=== PATIENT | male | born 1965 | race Caucasian/White ===

== ENCOUNTER 2017-12-18 12:25 | Inpatient (IN) ==
[2017-12-18] MEDS ORDERED: 0.9 % Sodium Chloride 1,000 ML IVC ONE (13:15)
--- NOTE | 2017-12-18 13:18 | Emergency Department Note ---
Disposition Clinical Impression: Partial small bowel obstruction Disposition: Admitted As Inpatient Condition: Fair Referrals: NONE,PCP [Primary Care Provider] - Mart Ramirez [Family Provider] - Forms: ED Satisfaction Letter Time of Disposition: 16:39 Nausea/Vomiting/Diarrhea HPI - General Chief complaint: ED Nausea/Vomiting/Diarrhea Stated complaint: N/V/D Time Seen by Provider: 12/18/17 12:53 Source: patient Mode of arrival: ambulatory Limitations: no limitations Nursing Notes Reviewed: Yes Vital Signs Reviewed: Yes - History of Present Illness HPI Narrative: 52-year-old who developed nausea vomiting diarrhea after eating pizza couple nights ago he said persistent symptoms. Pt Subjective Complaint: nausea, vomiting, diarrhea Description of emesis: food contents Description of Diarrhea: water Associated Abdominal Pain: Yes If pain, Location of pain: diffuse Severity: moderate Quality: cramping, aching Consistency: intermittent Improves with: nothing Worsens with: nonthing Associated symptoms: Reports: nausea/vomiting - Related Data Home Medications Medication Instructions Recorded Confirmed Lisinopril [Zestril] 20 mg PO DAILY 12/18/17 12/18/17 Mag Carb/Al Hydrox/Alginic AC 30 ml PO ONCE PRN 12/18/17 12/18/17 [Gaviscon Liquid] Ranitidine HCl [Acid Apprentice Architect] 75 mg PO DAILY PRN 12/18/17 12/18/17 Allergies Allergy/AdvReac Type Severity Reaction Status Date / Time No Known Allergies Allergy Verified 12/18/17 16:57 All systems ED: reviewed and negative except as stated. Constitutional: Denies: fever, chills, weakness, weight change Eyes: Denies: eye pain, eye discharge, vision change ENT ED: Denies: ear pain, throat pain, dental pain, hearing loss, epistaxis, congestion, dysphagia Cardiovascular: Denies: chest pain, palpitations, dyspnea on exertion, edema, syncope Respiratory: Denies: cough, dyspnea, wheezes, hemoptysis, stridor Gastrointestinal: Reports: abdominal pain, nausea, vomiting, diarrhea. Denies: constipation, hematemesis, melena, hematochezia Genitourinary: Denies: urgency, dysuria, frequency, hematuria Musculoskeletal: Denies: back pain, neck pain, arthralgia, myalgia Integumentary: Denies: rash, abrasion, lesions Neurological: Denies: headache, weakness, numbness, paresthesias, confusion, abnormal gait, vertigo Psychiatric: Denies: anxiety, depression, suicidal thoughts, homicidal thoughts , auditory hallucinations, visual hallucinations Endocrine: Denies: fatigue Hematological/Lymphatic: Denies: easy bleeding, easy bruising Allergic/Immunologic: Denies: facial swelling, urticaria Past Medical History - Past Medical History Medical history: Reports: hyperlipidemia, hypertension Psychiatric history: Reports: no psych history - Social History Smoking Status: Never smoker Smokeless Tobacco Status: No Alcohol use: Reports: none Drug use: Reports: none Physical Exam - General Limitations: no limitations General appearance: alert - Head Head exam: atraumatic, normocephalic, normal inspection - Eye Eye exam: Present: normal appearance, PERRL, EOMI - ENT ENT exam: normal exam, normal oropharynx, mucous membranes moist - Neck Neck exam: Present: normal inspection, full ROM, trachea midline - Chest Chest inspection: Present: normal inspection, symmetric chest wall rise - Respiratory Respiratory exam: Present: normal lung sounds bilaterally - Cardiovascular Cardiovascular exam: Present: regular rate, normal rhythm, normal heart sounds - Abdominal Exam Abdominal exam: Present: soft, tenderness. Absent: guarding, rebound Abdominal tenderness: Present: diffuse - Extremities Exam Extremities exam: Present: normal inspection, full ROM. Absent: tenderness, pedal edema - Expanded Lower Extremity Exam Neurovascular/Tendon exam: Absent: motor deficit, sensory deficit, tendon deficit - Back Exam Back exam: Present: normal inspection, full ROM. Absent: tenderness - Neurological Exam Neurological exam: Present: alert, oriented X3 - Psychiatric Psychiatric exam: Present: normal affect, normal mood - Skin Skin exam: Present: warm, dry, intact, normal color Course - Consultations Consultation #1: Discussed with Dr. Lugo who will see the patient in consult admit to the hospitalist Time: 16:38 Consultation #2: Discussed with , admit Time: 16:48 Vital Signs Temperature 98.1 F 12/18/17 12:27 Pulse Rate 99 12/18/17 12:27 Respiratory Rate 18 12/18/17 12:27 Blood Pressure 148/94 12/18/17 12:27 O2 Sat by Pulse Oximetry 97 12/18/17 12:27 Temperature 98.1 F 12/18/17 12:27 Pulse Rate 78 06/21/18 17:14 Respiratory Rate 20 12/18/17 17:14 Blood Pressure 131/83 12/18/17 17:14 O2 Sat by Pulse Oximetry 98 12/18/17 17:14 Oxygen Delivery Oxygen Delivery Room Air Nausea/Vomiting/Diarrhea - Lab Data Result diagrams: 12/18/17 13:11 12/18/17 13:11 Lab Results 12/18/17 12/18/17 12/18/17 Range/Units 13:05 13:11 13:11 WBC 12.2 H (4.3-11.1) K/mcL RBC 5.89 H (4.19-5.50) M/mcL Hgb 16.0 (12.9-16.9) g/dL Hct 47.1 (37.5-50.1) % MCV 80.0 L (83.0-100.0) fL MCH 27.2 L (28.0-33.3) pg MCHC 34.0 (31.6-35.5) g/dL RDW 14.0 (11.5-14.5) % Plt Count 243 (140-400) K/mcL MPV 11.0 (9.4-12.4) fL Immature Gran % 0.3 (0-4) % Seg Neutrophils % 85.8 % Lymphocytes % 6.9 % Monocytes % 6.9 % Eosinophils % 0.0 % Basophils % 0.1 % Neutrophils # 10.4 H (1.6-8.9) K/mcL Lymphocytes # 0.8 (0.6-4.6) K/mcL Monocytes # 0.8 (0.0-1.3) K/mcL Eosinophils # 0.0 (0.0-0.6) K/mcL Basophils # 0.0 (0.0-0.2) K/mcL Sodium 132 L (136-145) mEq/L Potassium 3.8 (3.5-5.1) mEq/L Chloride 99 (98-107) mEq/L Carbon Dioxide 22 L (23-29) mEq/L BUN 12 (6-20) mg/dL Creatinine 1.02 (0.70-1.30) mg/dL Est GFR ( Amer) > 60 (> 60) Est GFR (Non-Af Amer) > 60 (> 60) BUN/Creatinine Ratio 12 (6-26) Glucose 134 H (70-105) mg/dL Calculated Osmolality 276 L (280-300) Calcium 9.4 (8.6-10.3) mg/dL Total Bilirubin 0.7 (0.3-1.0) mg/dL AST 24 (13-39) Units/L ALT 82 H (7-52) Units/L Alkaline Phosphatase 74 (34-104) Units/L Serum Total Protein 7.2 (6.4-8.9) g/dL Albumin 4.1 (3.5-5.7) g/dL Globulin 3.1 (2.4-3.5) g/dL Albumin/Globulin Ratio 1.3 (1.1-2.2) Lipase 6 L (11-82) Units/L Urine Color Dark Yellow (Yellow) Urine Clarity Clear (Clear) Urine pH 6.0 (5.0-8.0) pH Units Ur Specific [place] > 1.030 H (1.010-1.025) Urine Protein 30 H (Neg-Trace) mg/dL Urine Glucose (UA) Normal (Normal) mg/dL Urine Ketones 15 H (Negative) mg/dL Urine Blood Negative (Negative) Urine Nitrite Negative (Negative) Urine Bilirubin Negative (Negative) Urine Urobilinogen Normal (Normal) mg/dL Ur Leukocyte Esterase Negative (Negative) Urine Microscopic RBC 3-5 H (0-3) per hpf Urine Microscopic WBC 0-3 (0-3) per hpf Ur Squamous Epith Cells None Seen (None-Few) per lpf Urine Bacteria None Seen (None-Few) per hpf Hyaline Casts None Seen (None-Few) per lpf Ur Culture Indicated? NO (NO)
[2017-12-18 13:28] LABS: Bilirubin,Urine Negative (Negative); Blood,Urine Negative (Negative); Clarity,Urine Clear (Clear); Color,Urine Dark Yellow (Yellow); Glucose,Urine (UA) Normal (Normal); Ketones,Urine 15 mg/dL (Negative); Leukocyte Esterase,Urine Negative (Negative); Nitrite,Urine Negative (Negative); Protein,Urine 30 mg/dL (Neg-Trace); Specific Gravity,Urine > 1.030 (1.010-1.025); Urobilinogen,Urine Normal (Normal)
[2017-12-18 13:28] LABS: Basophils % 0.1 %; Hematocrit 47.1 % (37.5-50.1); Immature Granulocytes % 0.3 % (0-4); Lymphocytes # 0.8 K/mcL (0.6-4.6); Lymphocytes % 6.9 %; Mean Corpuscular Hemoglobin 27.2 pg (28.0-33.3); Monocytes # 0.8 K/mcL (0.0-1.3); Monocytes % 6.9 %; Neutrophils # 10.4 K/mcL (1.6-8.9); Platelet Count 243 K/mcL (140-400); Red Blood Count 5.89 M/mcL (4.19-5.50); Segmented Neutrophils % 85.8 %
[2017-12-18 13:30] LABS: Bacteria,Urine None Seen per hpf (None-Few); Hyaline Casts,Urine None Seen per lpf (None-Few); Squamous Epithelial Cell,Urine None Seen per lpf (None-Few); WBC,Urine 0-3 per hpf (0-3)
[2017-12-18 13:47] LABS: Alanine Aminotransferase 82 Units/L (7-52); Albumin 4.1 g/dL (3.5-5.7); Albumin/Globulin Ratio 1.3 (1.1-2.2); Alkaline Phosphatase 74 Units/L (34-104); Aspartate Amino Transferase 24 Units/L (13-39); BUN/Creatinine Ratio 12 (6-26); Bilirubin,Total 0.7 mg/dL (0.3-1.0); Blood Urea Nitrogen 12 mg/dL (6-20); Calcium 9.4 mg/dL (8.6-10.3); Carbon Dioxide 22 mEq/L (23-29); Chloride 99 mEq/L (98-107); Globulin 3.1 g/dL (2.4-3.5); Glucose 134 mg/dL (70-105); Lipase 6 Units/L (11-82); Osmolality,Calculated 276 (280-300); Potassium 3.8 mEq/L (3.5-5.1); Sodium 132 mEq/L (136-145); Total Protein 7.2 g/dL (6.4-8.9); eGFR For African Americans > 60 (> 60); eGFR For Non-African Americans > 60 (> 60)
[2017-12-18] MEDS ORDERED: Ondansetron 4 MG/2 ML VIAL IVP ONE (16:19)
[2017-12-18] MEDS ORDERED: *HR* HYDROmorphone (PF) 1 MG/ML SYRINGE IVP ONE (16:19)
[2017-12-18] MEDS ORDERED: Naloxone 0.4 MG/ML INJ IVP PRN ×2 (17:33→17:35)
[2017-12-18] MEDS ORDERED: 0.9 % Sodium Chloride 1,000 ML IVC SCH (17:45)
[2017-12-18] MEDS ORDERED: Pantoprazole 40 MG VIAL IVP SCH (17:45)
--- NOTE | 2017-12-18 17:54 | Internal Med History&Physical ---
Date of Encounter: 12/18/17 Time of Encounter: 06:00 Internal Medicine - H&P: HPI Chief complaint: Abdominal pain Admitted From: Home Plans for Post Hospital Care: Home History of present illness: Mr. العلي is a 52 year old male who presented to the emergency department with abdominal pain. Pain started this morning and got worse. Patient had CT abdomen that showed high-grade partial small bowel obstruction. Surgery contacted and they will see the patient on consult. Patient denied any chest pain no shortness of breath no headache no blurry vision. He did have nausea and vomiting and abdominal pain. Last bowel movement was yesterday morning. Past Med Surg Social Fam HX - Past Medical History Medical history: hyperlipidemia, hypertension Psychiatric history: no psych history - Past Surgical History Additional surgical history: right fourth digit - Social History Smoking Status: Never smoker Smokeless Tobacco Status: No Alcohol use: none Drug use: none - Additional Family History Additional family history: Family history reviewed with the patient and not related to his current problem. Positive for hypertension Internal Medicine - H&P: Meds Lisinopril [Zestril] 20 mg PO DAILY 12/18/17 [History] Mag Carb/Al Hydrox/Alginic AC [Gaviscon Liquid] 30 ml PO ONCE PRN 12/18/17 [ History] Ranitidine HCl [Acid Long Distance Operator] 75 mg PO DAILY PRN 12/18/17 [History] 3 Allergy/AdvReac Type Severity Reaction Status Date / Time No Known Allergies Allergy Verified 12/18/17 16:57 All Systems PM: A 10-system review of systems was performed and is negative for pertinent findings except as documented above in the HPI. Review of systems: Comprehensive 10 point review of system was done and it was negative other than what was mentioned above - Constitutional Vitals: Temp Pulse Resp BP Pulse Ox 98.1 F 78 20 131/83 98 12/18/17 12:27 12/18/17 17:14 12/18/17 17:14 12/18/17 17:14 12/18/17 17:14 General appearance: Present: A&O X 3 - Head Head exam: Present: atraumatic, normocephalic - Eye Eye exam: Present: PERRL, conjuntiva pink, sclera anicteric Pupils: Present: PERRL - Neck Neck exam general surgery: Present: supple, trachea midline. Absent: lymphadenopathy - Respiratory Respiratory exam: Present: CTAB. Absent: accessory muscle use, rales, rhonchi, wheezes - Cardiovascular Cardiovascular exam: Present: RRR, +S1, +S2. Absent: diastolic murmur, gallop, rubs, systolic murmur - GI/Abdominal Additional comments: Tenderness mostly in the upper abdomen and left abdomen - Extremities Exam Extremities exam: Present: warm, radial pulses palpable and symmetrical. Absent : calf tenderness, cyanotic, pedal edema - Neurological Exam Neurological exam: Present: CN II-XII intact, oriented X3, no focal deficits. Absent: pronater drift, facial droop, speech deficit Internal Med - H&P Results - Labs CBC & Chem 7: 12/18/17 13:11 12/18/17 13:11 Labs: Short CBC 12/18/17 Range/Units 13:11 WBC 12.2 H (4.3-11.1) K/mcL Hgb 16.0 (12.9-16.9) g/dL Hct 47.1 (37.5-50.1) % Plt Count 243 (140-400) K/mcL Neutrophils # 10.4 H (1.6-8.9) K/mcL BMP 12/18/17 13:11 Sodium 132 L Potassium 3.8 Chloride 99 Carbon Dioxide 22 L BUN 12 Creatinine 1.02 Glucose 134 H Calcium 9.4 Liver Function 12/18/17 Range/Units 13:11 Total Bilirubin 0.7 (0.3-1.0) mg/dL AST 24 (13-39) Units/L ALT 82 H (7-52) Units/L Alkaline Phosphatase 74 (34-104) Units/L Albumin 4.1 (3.5-5.7) g/dL Urine 12/18/17 Range/Units 13:05 Urine Color Dark Yellow (Yellow) Urine Clarity Clear (Clear) Urine pH 6.0 (5.0-8.0) pH Units Ur Specific [place] > 1.030 H (1.010-1.025) Urine Protein 30 H (Neg-Trace) mg/dL Urine Glucose (UA) Normal (Normal) mg/dL - Impressions ITS Impressions Abdomen/Pelvis CT 12/18/17 13:16 IMPRESSION: 1. Findings concerning for high-grade partial small-bowel obstruction with transition point in the mid small bowel in the periumbilical region. This could be related to adhesions. 2. Haziness of the mesentery with multiple prominent mesenteric lymph nodes are likely reactive in nature from the small bowel process. 3. Minor free fluid in the pelvis is likely reactive in nature from the small bowel process. 4. Severely atrophic left kidney with markedly dilated left ureter extending down to the left UVJ. 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 D/ / Nawaf Downey MD / Nawaf Downey MD Interpreting Provider: Nawaf Downey MD - Assessment and plan (1) Partial small bowel obstruction Current Visit: Yes Status: Acute Assessment and plan: Keep patient nothing by mouth for now NG tube to be inserted, for decompression IV hydration with normal saline IV Protonix Pain management Surgeries consulted Monitor labs and replace electrolytes as needed (2) Partial small bowel obstruction Current Visit: Yes Status: Acute Assessment and plan: Add hydralazine IV when necessary for now May restart his home antihypertensives when patient is taking by mouth (3) History of hypertension Current Visit: Yes Status: Acute (4) On esomeprazole prophylaxis Current Visit: Yes Status: Acute (5) DVT prophylaxis Current Visit: Yes Status: Acute - Time Spent With Patient Total time spent is greater than 50% in coordination of care (as documented) at patient's floor/unit and/or counseling patient:
[2017-12-18] MEDS ORDERED: Ondansetron 4 MG/2 ML VIAL IVP PRN (18:02)
[2017-12-18] MEDS: 0.9 % Sodium Chloride 1,000 ML IVC SCH (20:12)
[2017-12-18] MEDS: Pantoprazole 40 MG VIAL IVP SCH (20:15)
[2017-12-18] MEDS: Chloraseptic Spray 177 ML BOTTLE MM PRN (20:22)
[2017-12-18] MEDS ORDERED: *HR* FentaNYL (PF) 100 MCG/2 ML VIAL IVP SCH (23:45)
[2017-12-19] MEDS: *HR* FentaNYL (PF) 100 MCG/2 ML VIAL IVP PRN ×2 (03:26→10:16)
[2017-12-19] MEDS: 0.9 % Sodium Chloride 1,000 ML IVC SCH ×3 (03:29→20:17)
[2017-12-19 05:57] LABS: Basophils % 0.3 %; Eosinophils # 0.1 K/mcL (0.0-0.6); Eosinophils % 1.1 %; Hematocrit 38.5 % (37.5-50.1); Immature Granulocytes % 0.2 % (0-4); Lymphocytes # 1.2 K/mcL (0.6-4.6); Lymphocytes % 19.2 %; Mean Corpuscular HGB Conc 32.2 g/dL (31.6-35.5); Mean Corpuscular Hemoglobin 26.7 pg (28.0-33.3); Monocytes # 0.6 K/mcL (0.0-1.3); Monocytes % 9.7 %; Neutrophils # 4.5 K/mcL (1.6-8.9); Platelet Count 167 K/mcL (140-400); Red Blood Count 4.64 M/mcL (4.19-5.50); Red Cell Distribution Width 14.5 % (11.5-14.5); Segmented Neutrophils % 69.5 %
[2017-12-19] MEDS: *HR* Enoxaparin 40 MG/0.4 ML SYRINGE SQ SCH (06:00)
[2017-12-19 06:15] LABS: Hemoglobin 12.4 g/dL (12.9-16.9)
[2017-12-19 06:23] LABS: BUN/Creatinine Ratio 11 (6-26); Blood Urea Nitrogen 12 mg/dL (6-20); Carbon Dioxide 25 mEq/L (23-29); Chloride 104 mEq/L (98-107); Glucose 99 mg/dL (70-105); Magnesium 1.8 mg/dL (1.6-2.6); Osmolality,Calculated 282 (280-300); Sodium 136 mEq/L (136-145); eGFR For African Americans > 60 (> 60); eGFR For Non-African Americans > 60 (> 60)
--- NOTE | 2017-12-19 06:58 | General Surgery Consult Note ---
Date of Encounter: 12/19/17 Time of Encounter: 06:56 Assessment and Plan (1) Partial small bowel obstruction Current Visit: Yes Status: Acute I splayed to the patient that overall he seems to be improving. His NG tube output was approximately 400 mL when the NG tube was first placed. He has positive bowel sounds on my examination and states that he does feel he has to pass flatus. I recommended that he ambulate and I would continue with the NG tube for decompression purposes. Will continue with IV fluids and allowed allow ice chips. At this time he does not require any type of surgical intervention. We will continue these conservative measures for now. History of Present Illness Consult date: 12/19/17 Reason for consult: other (Nausea/vomiting, abdominal distension) Requesting physician: Oscar Austin History of present illness: The patient is a 52-year-old male with a past medical history significant for hypertension and hyperlipidemia who states that 4 days ago Friday he started to have some nausea and vomiting with diarrhea that quickly subsided. He started to feel better the next day and then had dinner as usual. Friday morning at breakfast and then in the afternoon he started to have nausea and vomiting with some abdominal distention. The nausea and vomiting continued from Friday night to . He states he started having diarrhea again on evening which was brown and pasty but that on Friday diarrhea turned to more liquid and dark in color. He admits to some abdominal pain but more abdominal distention is the cause of his discomfort. Because of his continuing symptoms yesterday he presented himself to [facility] for further evaluation. Currently states that he feels better. An NG tube was placed upon his admission to the hospital. He does not have any current abdominal pain (he has some soreness because of the vomiting) and states that he feels like he has to pass flatus. Past Med Surg Social Fam HX - Past Medical History Medical history: hyperlipidemia, hypertension Psychiatric history: no psych history - Past Surgical History Surgical History: appendectomy (Open appy), other (Right forth finger, right knee surgery) Additional surgical history: right fourth digit, right, appy - Social History Smoking Status: Never smoker Smokeless Tobacco Status: No Alcohol use: none Drug use: none Medications and Allergies Lisinopril [Zestril] 20 mg PO DAILY 12/18/17 [History] Mag Carb/Al Hydrox/Alginic AC [Gaviscon Liquid] 30 ml PO ONCE PRN 12/18/17 [ History] Ranitidine HCl [Acid Netbackup Engineer] 75 mg PO DAILY PRN 12/18/17 [History] 3 Allergy/AdvReac Type Severity Reaction Status Date / Time No Known Allergies Allergy Verified 12/18/17 16:57 Review of Systems All systems PM: reviewed and no additional remarkable complaints except as stated All systems PM: The remainder of the systems were reviewed and are negative General Surgery Exam Initial Vital Signs Temp Pulse Resp BP Pulse Ox 98.1 F 99 18 148/94 97 12/18/17 12:27 12/18/17 12:27 12/18/17 12:27 12/18/17 12:27 12/18/17 12:27 - Eyes PERRL, normal ocular movement - Respiratory normal expansion, normal respiratory effort, clear to auscultation - Cardiovascular Cardiovascular exam: Present: RRR, no murmurs/rubs/gallops - Abdomen Abdomen general surgery: Present: bowel sounds present, soft, tender (Mild tenderness to palpation. No masses) - Neurologic Present: CN 2-12 grossly intact - Musculoskeletal Present: other (No clubbing or cyanosis or edema) Exam Initial Vital Signs Temp Pulse Resp BP Pulse Ox 98.1 F 99 18 148/94 97 12/18/17 12:27 12/18/17 12:27 12/18/17 12:27 12/18/17 12:27 12/18/17 12:27 Results - Labs 12/19/17 05:18 12/19/17 05:18 Abnormal lab results Hgb 12.4 g/dL (12.9-16.9) L D 12/19/17 05:18 MCH 26.7 pg (28.0-33.3) L 12/19/17 05:18 Calcium 8.0 mg/dL (8.6-10.3) L 12/19/17 05:18 ALT 82 Units/L (7-52) H 12/18/17 13:11 Lipase 6 Units/L (11-82) L 12/18/17 13:11 Ur Specific [place] > 1.030 (1.010-1.025) H 12/18/17 13:05 Urine Protein 30 mg/dL (Neg-Trace) H 12/18/17 13:05 Urine Ketones 15 mg/dL (Negative) H 12/18/17 13:05 Urine Microscopic RBC 3-5 per hpf (0-3) H 12/18/17 13:05 Diabetes panel 12/19/17 Range/Units 05:18 Sodium 136 (136-145) mEq/L Potassium 4.0 (3.5-5.1) mEq/L Chloride 104 (98-107) mEq/L Carbon Dioxide 25 (23-29) mEq/L BUN 12 (6-20) mg/dL Creatinine 1.12 (0.70-1.30) mg/dL Glucose 99 (70-105) mg/dL Calcium 8.0 L (8.6-10.3) mg/dL Calcium panel 12/19/17 Range/Units 05:18 Calcium 8.0 L (8.6-10.3) mg/dL Phosphorus 3.0 (2.7-4.5) mg/dL Pituitary panel 12/19/17 Range/Units 05:18 Sodium 136 (136-145) mEq/L Potassium 4.0 (3.5-5.1) mEq/L Chloride 104 (98-107) mEq/L Carbon Dioxide 25 (23-29) mEq/L BUN 12 (6-20) mg/dL Creatinine 1.12 (0.70-1.30) mg/dL Glucose 99 (70-105) mg/dL Calcium 8.0 L (8.6-10.3) mg/dL Adrenal panel 12/19/17 Range/Units 05:18 Sodium 136 (136-145) mEq/L Potassium 4.0 (3.5-5.1) mEq/L Chloride 104 (98-107) mEq/L Carbon Dioxide 25 (23-29) mEq/L BUN 12 (6-20) mg/dL Creatinine 1.12 (0.70-1.30) mg/dL Glucose 99 (70-105) mg/dL Calcium 8.0 L (8.6-10.3) mg/dL All other labs normal. - Imaging CT scan - abdomen: report reviewed, image reviewed (I personally reviewed the CT scan images and report. Shows evidence of small bowel dilation concerning for partial small obstruction near high-grade. No intra-abdominal masses noted. ) Consult Discharge Plan - Plan Referrals: NONE,PCP [Primary Care Provider] - Mart Ramirez [Family Provider] -
[2017-12-19] MEDS: Pantoprazole 40 MG VIAL IVP SCH (10:16)
--- NOTE | 2017-12-19 12:39 | Internal Med Progress Note ---
Date of Encounter: 12/19/17 Time of Encounter: 12:37 - Assessment and plan (1) Partial small bowel obstruction Current Visit: Yes Status: Acute Assessment and plan: continue NG decompression, surgery is on board (2) Leukocytosis Current Visit: Yes Status: Acute Assessment and plan: resolved Qualifiers: Leukocytosis type: unspecified Qualified Code(s): D72.829 - Elevated white blood cell count, unspecified (3) Dehydration Current Visit: Yes Status: Acute Assessment and plan: contineu IVF (4) Chronic GERD Current Visit: Yes Status: Acute Assessment and plan: On PPI iV (5) Hypertension Current Visit: Yes Status: Acute Assessment and plan: hold lisinopril due to NPO, BP is well controlled Qualifiers: Hypertension type: essential hypertension Qualified Code(s): I10 - Essential (primary) hypertension - Time Spent With Patient Total time spent is greater than 50% in coordination of care (as documented) at patient's floor/unit and/or counseling patient: 25 - 35 minutes - Subjective Interval history: Mr. العلي is a 52 year old male who has remote hx of appendiectomy presented to the emergency department with abdominal pain. Pain started this morning and got worse. Patient had CT abdomen that showed high-grade partial small bowel obstruction. Surgery contacted and they will see the patient on consult. Patient denied any chest pain no shortness of breath no headache no blurry vision. He did have nausea and vomiting and abdominal pain. Patient is doing well, abdominal paina nd distention improved, tolerated NG. abdomen is soft and nontender. - Constitutional Vitals: Temp Pulse Resp BP Pulse Ox 98.1 F 64 16 139/75 96 12/19/17 10:44 12/19/17 10:44 12/19/17 10:44 12/19/17 10:44 12/19/17 10:44 General appearance: Present: A&O X 3, pleasant, obese Exam: CONSTITUTIONAL: patient appears as an age appropriate male in no acute distress. EYES Clear sclerae, bilateral pupils are equal, reactive to light. EMOI. RESPIRATORY: No accessory muscle use, bilateral clear to auscultation, no wheezing, no crackles/rales. CARDIOVASCULAR: Regular heart rate, normal S1 and S2, no murmurs GASTROINTESTINAL: bowel sounds present, soft, no tenderness. MUSCULOSKELETAL: Joints in normal range of motion, no clubbing, no edema, no cyanosis. Bilateral peripheral pulses 2+. NEUROLOGIC: CN II to XII are grossly intact, no focal neurological deficit. Internal Medicine: Result - Labs CBC & Chem 7: 12/19/17 05:18 12/19/17 05:18 Labs: Short CBC 12/19/17 Range/Units 05:18 WBC 6.4 (4.3-11.1) K/mcL Hgb 12.4 L D (12.9-16.9) g/dL Hct 38.5 (37.5-50.1) % Plt Count 167 (140-400) K/mcL Neutrophils # 4.5 (1.6-8.9) K/mcL BMP 12/19/17 05:18 Sodium 136 Potassium 4.0 Chloride 104 Carbon Dioxide 25 BUN 12 Creatinine 1.12 Glucose 99 Calcium 8.0 L - Impressions Impressions Abdomen X-Ray 12/19/17 06:37 IMPRESSION: NG tube coiled in the gastric fundus. Persistent mid small bowel obstruction. D/ / 12/19/2017 10:35:35 Froylan Mccoy MD / edu Interpreting Provider: Froylan Mccoy MD Consult Discharge Plan - Plan Referrals: NONE,PCP [Primary Care Provider] - Mart Ramirez [Family Provider] -
[2017-12-19] MEDS: Chloraseptic Spray 177 ML BOTTLE MM PRN (20:19)
[2017-12-20] MEDS ORDERED: Dextrose Gel 15 GM/37.5 ML TUBE PO PRN ×2 (01:50)
[2017-12-20] MEDS ORDERED: *HR* Dextrose 50 % in Water (Syg) 50 ML SYRINGE IVP PRN (01:50)
[2017-12-20] MEDS ORDERED: D5% in Water 1,000 ML IVC PRN (01:50)
[2017-12-20] MEDS: 0.9 % Sodium Chloride 1,000 ML IVC SCH ×3 (03:45→20:06)
[2017-12-20] MEDS: Insulin LISPRO 300 UNITS/3 ML VIAL SQ SCH ×3 (06:06→19:47)
[2017-12-20] MEDS: *HR* Enoxaparin 40 MG/0.4 ML SYRINGE SQ SCH (06:08)
[2017-12-20] MEDS: Pantoprazole 40 MG VIAL IVP SCH (09:35)
--- NOTE | 2017-12-20 10:58 | General Surgery Progress Note ---
<Reggie Arita R - Last Filed: 12/20/17 10:54> Date of Encounter: 12/20/17 Time of Encounter: 08:30 - Assessment and Plan (1) Partial small bowel obstruction Current Visit: Yes Status: Acute NG output had been decreasing. Large BM this morning. Abd is soft, mild tenderness.Positive bowel sounds PLAN: Remove NG tube Limited clear liquid diet - 300 ml Q8H Symptom control Ambulate hallways TID No surgical indications at this time Subjective Patient reports: no new complaints, feels better, still having pain, pain is less, voiding w/o difficulty, bowel movement, afebrile Narrative: Large BM this AM. No N/V. Pain is improving. Reports significant improvement in his abdominal distention. Objective Vital Signs - Last 8 Hours Temp Pulse Resp BP Pulse Ox 12/20/17 07:38 98.1 F 73 16 136/74 97 12/20/17 04:39 98.6 F 61 16 134/71 97 Intake and Output 12/19/17 12/20/17 12/20/17 23:59 07:59 15:59 Intake Total 1070 / 1070 1000 / 1000 Output Total 1050 / 1050 1400 / 1400 Balance 20 / 20 -400 / -400 Intake: IV Fluids 1000 / 1000 1000 / 1000 0.9 % Sodium Chloride 1,000 ML 1000 / 1000 1000 / 1000 @ 125 mls/hr IVC .Q8H COUNTS INCLUDE 234 BEDS AT [facility] Rx#: [id number] Oral 70 / 70 0 / 0 Output: Urine 0 / 0 550 / 550 Gastric Tube Lavage Amount 400 / 400 400 / 400 Left Nare 400 / 400 400 / 400 Gastric Drainage 650 / 650 450 / 450 Other: Meal npo Percent of Meal Consumed 0% Stool Size Large Stool Consistency loose liquid Stool Color Brown Weight 92 kg Blood Glucose* 70 86 Patient Weight 12/20/17 23:59 Weight 92 kg - General physical appearance well developed, well nourished, no distress - Respiratory normal expansion, normal respiratory effort, clear to auscultation - Cardiovascular Cardiovascular exam: Present: RRR - Abdomen Abdomen: Present: bowel sounds present, soft, tender (mild). Absent: distended , guarding, rebound, rigid - Integumentary no rash, no growths, no abnormal pigmentation - Neurologic CN 2-12 grossly intact, normal coordination - Psychiatric oriented to time, oriented to person, oriented to place, speech is normal, memory intact - Labs 12/19/17 05:18 12/19/17 05:18 Consult Discharge Plan - Plan Referrals: NONE,PCP [Primary Care Provider] - Mart Ramirez [Family Provider] - <Farrukh Beck - Last Filed: 12/20/17 12:21> Date of Encounter: 12/20/17 Objective Vital Signs - Last 8 Hours Temp Pulse Resp BP Pulse Ox 12/20/17 10:52 98.2 F 69 16 147/69 97 12/20/17 07:38 98.1 F 73 16 136/74 97 12/20/17 04:39 98.6 F 61 16 134/71 97 Intake and Output 12/19/17 12/20/17 12/20/17 23:59 07:59 15:59 Intake Total 1070 / 1070 1000 / 1000 0 / 0 Output Total 1050 / 1050 1400 / 1400 Balance 20 / 20 -400 / -400 0 / 0 Intake: IV Fluids 1000 / 1000 1000 / 1000 0.9 % Sodium Chloride 1,000 ML 1000 / 1000 1000 / 1000 @ 125 mls/hr IVC .Q8H [facility] Rx#: [id number] Oral 70 / 70 0 / 0 0 / 0 Output: Urine 0 / 0 550 / 550 Gastric Tube Lavage Amount 400 / 400 400 / 400 Left Nare 400 / 400 400 / 400 Gastric Drainage 650 / 650 450 / 450 Other: Meal npo Percent of Meal Consumed 0% Stool Size Large Stool Consistency loose liquid Stool Color Brown # Voids 0 Weight 92 kg Blood Glucose* 70 86 79 Patient Weight 12/20/17 23:59 Weight 92 kg - Labs 12/19/17 05:18 12/19/17 05:18 - Attending Attestation I examined this patient and my medical decision-making was reviewed with the Resident Physician. I agree with the documented findings, disposition and treatment plan as described except to the extent set forth below. The patient is admitted for partial bowel obstruction. He had a large bowel movement this morning. His abdomen is soft and nontender. He has normal bowel sounds. I would recommend removing the nasogastric tube in place him on clear liquids. Advance diet as tolerated. Farrukh Beck MD FACS
--- NOTE | 2017-12-20 11:47 | Internal Med Progress Note ---
Date of Encounter: 12/20/17 Time of Encounter: 11:43 - Assessment and plan (1) Partial small bowel obstruction Current Visit: Yes Status: Acute Assessment and plan: Had BM, appreciate surgery help, NG removed, on clears (2) Leukocytosis Current Visit: Yes Status: Acute Assessment and plan: resolved Qualifiers: Leukocytosis type: unspecified Qualified Code(s): D72.829 - Elevated white blood cell count, unspecified (3) Dehydration Current Visit: Yes Status: Acute Assessment and plan: continue IVF (4) Chronic GERD Current Visit: Yes Status: Acute Assessment and plan: on PPI (5) Hypertension Current Visit: Yes Status: Acute Qualifiers: Hypertension type: essential hypertension Qualified Code(s): I10 - Essential (primary) hypertension - Time Spent With Patient Total time spent is greater than 50% in coordination of care (as documented) at patient's floor/unit and/or counseling patient: 25 - 35 minutes - Subjective Interval history: Mr. العلي is a 52 year old male who has remote hx of appendiectomy presented to the emergency department with abdominal pain. Pain started this morning and got worse. Patient had CT abdomen that showed high-grade partial small bowel obstruction. Surgery contacted and they will see the patient on consult. Patient denied any chest pain no shortness of breath no headache no blurry vision. He did have nausea and vomiting and abdominal pain. Patient was admitted for SBO on 12/18. Surgery was consulted and they recommended conservative management. Patient was placed on NG for decompression. He had large BM, NG was removed this morning, his abdomen is soft , and started on clear now. - Constitutional Vitals: Temp Pulse Resp BP Pulse Ox 98.2 F 69 16 147/69 97 12/20/17 10:52 12/20/17 10:52 12/20/17 10:52 12/20/17 10:52 12/20/17 10:52 General appearance: Present: A&O X 3, pleasant, obese Exam: CONSTITUTIONAL: patient appears as an age appropriate male in no acute distress. EYES Clear sclerae, bilateral pupils are equal, reactive to light. EMOI. RESPIRATORY: No accessory muscle use, bilateral clear to auscultation, no wheezing, no crackles/rales. CARDIOVASCULAR: Regular heart rate, normal S1 and S2, no murmurs GASTROINTESTINAL: bowel sounds present, soft, no tenderness. MUSCULOSKELETAL: Joints in normal range of motion, no clubbing, no edema, no cyanosis. Bilateral peripheral pulses 2+. NEUROLOGIC: CN II to XII are grossly intact, no focal neurological deficit. Internal Medicine: Result - Labs CBC & Chem 7: 12/19/17 05:18 12/19/17 05:18 Consult Discharge Plan - Plan Referrals: NONE,PCP [Primary Care Provider] - Mart Ramirez [Family Provider] -
[2017-12-21 01:49] LABS: Basophils % 0.3 %; Eosinophils % 0.6 %; Hematocrit 37.6 % (37.5-50.1); Hemoglobin 12.7 g/dL (12.9-16.9); Immature Granulocytes % 0.4 % (0-4); Lymphocytes # 0.9 K/mcL (0.6-4.6); Lymphocytes % 12.5 %; Mean Corpuscular HGB Conc 33.8 g/dL (31.6-35.5); Mean Corpuscular Hemoglobin 27.5 pg (28.0-33.3); Mean Corpuscular Volume 81.6 fL (83.0-100.0); Monocytes # 0.5 K/mcL (0.0-1.3); Monocytes % 7.4 %; Neutrophils # 5.4 K/mcL (1.6-8.9); Platelet Count 176 K/mcL (140-400); Red Blood Count 4.61 M/mcL (4.19-5.50); Red Cell Distribution Width 13.7 % (11.5-14.5); Segmented Neutrophils % 78.8 %
[2017-12-21 02:11] LABS: BUN/Creatinine Ratio 11 (6-26); Blood Urea Nitrogen 10 mg/dL (6-20); Calcium 8.3 mg/dL (8.6-10.3); Carbon Dioxide 21 mEq/L (23-29); Chloride 111 mEq/L (98-107); Glucose 101 mg/dL (70-105); Magnesium 1.9 mg/dL (1.6-2.6); Osmolality,Calculated 281 (280-300); Potassium 3.7 mEq/L (3.5-5.1); Sodium 136 mEq/L (136-145); eGFR For African Americans > 60 (> 60); eGFR For Non-African Americans > 60 (> 60)
[2017-12-21] MEDS: 0.9 % Sodium Chloride 1,000 ML IVC SCH ×2 (03:22→16:02)
[2017-12-21] MEDS: *HR* Enoxaparin 40 MG/0.4 ML SYRINGE SQ SCH (06:05)
[2017-12-21] MEDS: Pantoprazole 40 MG VIAL IVP SCH (08:20)
[2017-12-21] MEDS: Simethicone 80 MG TAB.CHEW PO SCH ×3 (08:20→20:47)
--- NOTE | 2017-12-21 09:24 | General Surgery Progress Note ---
<Reggie Arita R - Last Filed: 12/21/17 10:22> Date of Encounter: 12/21/17 Time of Encounter: 07:10 - Assessment and Plan (1) Partial small bowel obstruction Current Visit: Yes Status: Acute Reporting feeling bloated today but no appreciable distention. No flatus Abd is soft, mild tenderness. Positive bowel sounds PLAN: Limited clear liquid diet - 300 ml Q8H Add colace and simethicone Fleet enema x1 Symptom control Ambulate hallways TID No surgical indications at this time Subjective Narrative: He reports feeling a little more bloated overnight. No flatus or BM. Feels like he has to go, but not able to. Tolerated limited clears without N/V. No fevers. Objective Vital Signs - Last 8 Hours Temp Pulse Resp BP Pulse Ox 12/21/17 07:33 98.5 F 69 16 160/81 97 12/21/17 04:19 98.7 F 74 16 160/86 96 Intake and Output 12/20/17 12/21/17 12/21/17 23:59 07:59 15:59 Intake Total 720 / 720 1420 / 1420 Output Total 1575 / 1575 700 / 700 Balance -855 / -855 720 / 720 Intake: IV Fluids 1000 / 1000 0.9 % Sodium Chloride 1,000 ML 1000 / 1000 @ 125 mls/hr IVC .Q8H [facility] Rx#: [id number] Oral 720 / 720 420 / 420 Output: Urine 1575 / 1575 700 / 700 Other: # Bowel Movements 1 0 Weight 92.6 kg Patient Weight 12/21/17 23:59 Weight 92.6 kg - General physical appearance well developed, well nourished, no distress - Respiratory normal expansion, normal respiratory effort, clear to auscultation - Cardiovascular Cardiovascular exam: Present: RRR - Abdomen Abdomen: Present: bowel sounds present, soft, tender (mild). Absent: distended , guarding, rebound, rigid - Integumentary no rash - Neurologic CN 2-12 grossly intact, normal coordination - Psychiatric oriented to time, oriented to person, oriented to place, speech is normal, memory intact - Labs 12/21/17 01:19 12/21/17 01:19 Diabetes panel 12/21/17 Range/Units 01:19 Sodium 136 (136-145) mEq/L Potassium 3.7 (3.5-5.1) mEq/L Chloride 111 H (98-107) mEq/L Carbon Dioxide 21 L (23-29) mEq/L BUN 10 (6-20) mg/dL Creatinine 0.89 (0.70-1.30) mg/dL Glucose 101 (70-105) mg/dL Calcium 8.3 L (8.6-10.3) mg/dL Calcium panel 12/21/17 Range/Units 01:19 Calcium 8.3 L (8.6-10.3) mg/dL Pituitary panel 12/21/17 Range/Units 01:19 Sodium 136 (136-145) mEq/L Potassium 3.7 (3.5-5.1) mEq/L Chloride 111 H (98-107) mEq/L Carbon Dioxide 21 L (23-29) mEq/L BUN 10 (6-20) mg/dL Creatinine 0.89 (0.70-1.30) mg/dL Glucose 101 (70-105) mg/dL Calcium 8.3 L (8.6-10.3) mg/dL Adrenal panel 12/21/17 Range/Units 01:19 Sodium 136 (136-145) mEq/L Potassium 3.7 (3.5-5.1) mEq/L Chloride 111 H (98-107) mEq/L Carbon Dioxide 21 L (23-29) mEq/L BUN 10 (6-20) mg/dL Creatinine 0.89 (0.70-1.30) mg/dL Glucose 101 (70-105) mg/dL Calcium 8.3 L (8.6-10.3) mg/dL Consult Discharge Plan - Plan Referrals: NONE,PCP [Primary Care Provider] - Mart Ramirez [Family Provider] - <Farrukh Beck - Last Filed: 12/21/17 11:11> Date of Encounter: 12/21/17 Objective Vital Signs - Last 8 Hours Temp Pulse Resp BP Pulse Ox 12/21/17 07:33 98.5 F 69 16 160/81 97 12/21/17 04:19 98.7 F 74 16 160/86 96 Intake and Output 12/20/17 12/21/17 12/21/17 23:59 07:59 15:59 Intake Total 720 / 720 1420 / 1420 600 / 600 Output Total 1575 / 1575 700 / 700 Balance -855 / -855 720 / 720 600 / 600 Intake: IV Fluids 1000 / 1000 0.9 % Sodium Chloride 1,000 ML 1000 / 1000 @ 125 mls/hr IVC .Q8H [facility] Rx#: [id number] Oral 720 / 720 420 / 420 600 / 600 Output: Urine 1575 / 1575 700 / 700 Other: Meal clear liquids # Bowel Movements 1 0 Weight 92.6 kg Patient Weight 12/21/17 23:59 Weight 92.6 kg - Labs 12/21/17 01:19 12/21/17 01:19 Diabetes panel 12/21/17 Range/Units 01:19 Sodium 136 (136-145) mEq/L Potassium 3.7 (3.5-5.1) mEq/L Chloride 111 H (98-107) mEq/L Carbon Dioxide 21 L (23-29) mEq/L BUN 10 (6-20) mg/dL Creatinine 0.89 (0.70-1.30) mg/dL Glucose 101 (70-105) mg/dL Calcium 8.3 L (8.6-10.3) mg/dL Calcium panel 12/21/17 Range/Units 01:19 Calcium 8.3 L (8.6-10.3) mg/dL Pituitary panel 12/21/17 Range/Units 01:19 Sodium 136 (136-145) mEq/L Potassium 3.7 (3.5-5.1) mEq/L Chloride 111 H (98-107) mEq/L Carbon Dioxide 21 L (23-29) mEq/L BUN 10 (6-20) mg/dL Creatinine 0.89 (0.70-1.30) mg/dL Glucose 101 (70-105) mg/dL Calcium 8.3 L (8.6-10.3) mg/dL Adrenal panel 12/21/17 Range/Units 01:19 Sodium 136 (136-145) mEq/L Potassium 3.7 (3.5-5.1) mEq/L Chloride 111 H (98-107) mEq/L Carbon Dioxide 21 L (23-29) mEq/L BUN 10 (6-20) mg/dL Creatinine 0.89 (0.70-1.30) mg/dL Glucose 101 (70-105) mg/dL Calcium 8.3 L (8.6-10.3) mg/dL - Attending Attestation I examined this patient and my medical decision-making was reviewed with the Resident Physician. I agree with the documented findings, disposition and treatment plan as described except to the extent set forth below. The patient is seen and evaluated on morning rounds with resident. He continues to feel somewhat bloated. I think a fleets enema may be helpful. He does not appear to have bowel obstruction. Farrukh Beck MD FACS
--- NOTE | 2017-12-21 11:27 | Internal Med Progress Note ---
Date of Encounter: 12/21/17 Time of Encounter: 11:26 - Assessment and plan (1) Partial small bowel obstruction Current Visit: Yes Status: Acute Assessment and plan: NG removed on 12/20, on clears, no BM today, feels bloated. appreciate surgery help (2) Leukocytosis Current Visit: Yes Status: Acute Assessment and plan: resolved Qualifiers: Leukocytosis type: unspecified Qualified Code(s): D72.829 - Elevated white blood cell count, unspecified (3) Dehydration Current Visit: Yes Status: Acute Assessment and plan: continue IVF due to unalbe to tolerate diet (4) Chronic GERD Current Visit: Yes Status: Acute Assessment and plan: on IV protonix (5) Hypertension Current Visit: Yes Status: Chronic Qualifiers: Hypertension type: essential hypertension Qualified Code(s): I10 - Essential (primary) hypertension - Time Spent With Patient Total time spent is greater than 50% in coordination of care (as documented) at patient's floor/unit and/or counseling patient: 25 - 35 minutes - Subjective Interval history: Mr. العلي is a 52 year old male who has remote hx of appendiectomy presented to the emergency department with abdominal pain. Pain started this morning and got worse. Patient had CT abdomen that showed high-grade partial small bowel obstruction. Surgery contacted and they will see the patient on consult. Patient denied any chest pain no shortness of breath no headache no blurry vision. He did have nausea and vomiting and abdominal pain. Patient was admitted for SBO on 12/18. Surgery was consulted and they recommended conservative management. Patient was placed on NG for decompression. He had large BM, NG was removed on 12/20, he was doing well yesterday, but since last night, he feels bloated, no BM, just some flatus, no appetite. abdomen is soft, non-tender, positve BS. conitnue clears, added colace simethicone, fleet enema per surgery - Constitutional Vitals: Temp Pulse Resp BP Pulse Ox 98.5 F 69 16 160/81 97 12/21/17 07:33 12/21/17 07:33 12/21/17 07:33 12/21/17 07:33 12/21/17 07:33 General appearance: Present: A&O X 3, pleasant, obese Exam: CONSTITUTIONAL: patient appears as an age appropriate male in no acute distress. EYES Clear sclerae, bilateral pupils are equal, reactive to light. EMOI. RESPIRATORY: No accessory muscle use, bilateral clear to auscultation, no wheezing, no crackles/rales. CARDIOVASCULAR: Regular heart rate, normal S1 and S2, no murmurs GASTROINTESTINAL: bowel sounds present, soft, no tenderness. MUSCULOSKELETAL: Joints in normal range of motion, no clubbing, no edema, no cyanosis. Bilateral peripheral pulses 2+. NEUROLOGIC: CN II to XII are grossly intact, no focal neurological deficit. Internal Medicine: Result - Labs CBC & Chem 7: 12/21/17 01:19 12/21/17 01:19 Labs: Short CBC 12/21/17 Range/Units 01:19 WBC 6.9 (4.3-11.1) K/mcL Hgb 12.7 L (12.9-16.9) g/dL Hct 37.6 (37.5-50.1) % Plt Count 176 (140-400) K/mcL Neutrophils # 5.4 (1.6-8.9) K/mcL BMP 12/21/17 01:19 Sodium 136 Potassium 3.7 Chloride 111 H Carbon Dioxide 21 L BUN 10 Creatinine 0.89 Glucose 101 Calcium 8.3 L Consult Discharge Plan - Plan Referrals: NONE,PCP [Primary Care Provider] - Mart Ramirez [Family Provider] -
[2017-12-21] MEDS ORDERED: 0.9 % Sodium Chloride 1,000 ML ONE (15:51)
[2017-12-22] MEDS: 0.9 % Sodium Chloride 1,000 ML IVC SCH ×3 (02:16→21:50)
[2017-12-22] MEDS: *HR* Enoxaparin 40 MG/0.4 ML SYRINGE SQ SCH (06:36)
--- NOTE | 2017-12-22 08:40 | Internal Med Progress Note ---
<Jose Lowe - Last Filed: 12/22/17 13:48> Date of Encounter: 12/22/17 Time of Encounter: 08:37 - Assessment and plan (1) Partial small bowel obstruction Current Visit: Yes Status: Acute Assessment and plan: NG removed on 12/20, passing flatus, no BM today, feels bloated. Repeat acute abdominal series x-ray pending Continue colace and simethicone No acute indications for surgical intervention at this time per surgery Advance diet once cleared by surgery team to full liquids within the next 24 hours. . (2) Chronic GERD Current Visit: Yes Status: Acute Assessment and plan: Discontinue Protonix Resume home Ranitidne (3) Hypertension Current Visit: Yes Status: Chronic Assessment and plan: Resume home ACEI IVF rate decreased Metoprolol IV q6h prn SBP > 170 Qualifiers: Hypertension type: essential hypertension Qualified Code(s): I10 - Essential (primary) hypertension (4) DVT prophylaxis Current Visit: Yes Status: Acute Assessment and plan: Lovenox (5) Obesity (BMI 30.0-34.9) Current Visit: Yes Status: Acute Assessment and plan: Lifestyle modification - Time Spent With Patient Total time spent is greater than 50% in coordination of care (as documented) at patient's floor/unit and/or counseling patient: - Subjective Interval history: Patient seen and examined resting comfortably in bedside chair. Patient reports he feeling bloated, passing flatus, and has not had a BM. He also reports mild discomfort in left hand. BP is elevated this AM. Case discussed with surgery team. Will repeat x-ray and consider advancing diet. - Constitutional Vitals: Temp Pulse Resp BP Pulse Ox 98.1 F 85 14 192/96 97 12/22/17 07:39 12/22/17 07:39 12/22/17 07:39 12/22/17 07:39 12/22/17 07:39 General appearance: Present: A&O X 3, pleasant, obese - Head Head exam: Present: atraumatic, normocephalic - Eye Eye exam: Present: PERRL, conjuntiva pink, sclera anicteric Pupils: Present: PERRL - ENT ENT exam: Present: mucous membranes dry, normal oropharynx - Neck Neck exam general surgery: Present: supple, trachea midline. Absent: lymphadenopathy - Respiratory Respiratory exam: Present: CTAB. Absent: accessory muscle use, rales, rhonchi, wheezes - Cardiovascular Cardiovascular exam: Present: RRR, +S1, +S2. Absent: diastolic murmur, gallop, rubs, systolic murmur - GI/Abdominal GI/Abdominal exam: Present: normal bowel sounds, soft, no peritoneal signs. Absent: distended, tenderness - Extremities Exam Extremities exam: Present: warm, radial pulses palpable and symmetrical. Absent : calf tenderness, cyanotic, pedal edema, tenderness - Back Exam Back exam: Present: normal inspection. Absent: paraspinal tenderness, tenderness - Neurological Exam Neurological exam: Present: CN II-XII intact, oriented X3, no focal deficits. Absent: pronater drift, facial droop, speech deficit - Psychiatric Psychiatric exam: Present: normal affect, normal mood - Skin Skin exam: Present: dry, intact, warm Internal Medicine: Result - Labs CBC & Chem 7: 12/21/17 01:19 12/21/17 01:19 - Pulse Oximetry Interpretation Digit-Finger Pulse Oximetry Readin (On RA) Consult Discharge Plan - Plan Referrals: NONE,PCP [Primary Care Provider] - Mart Ramirez [Family Provider] - <Jackelin Zhang - Last Filed: 12/22/17 18:26> Date of Encounter: 12/22/17 - Assessment and plan (1) Partial small bowel obstruction Current Visit: Yes Status: Acute (2) DVT prophylaxis Current Visit: Yes Status: Acute (3) Chronic GERD Current Visit: Yes Status: Acute (4) Hypertension Current Visit: Yes Status: Chronic Qualifiers: Hypertension type: essential hypertension Qualified Code(s): I10 - Essential (primary) hypertension (5) Obesity (BMI 30.0-34.9) Current Visit: Yes Status: Acute - Time Spent With Patient Total time spent is greater than 50% in coordination of care (as documented) at patient's floor/unit and/or counseling patient: - Constitutional Vitals: Temp Pulse Resp BP Pulse Ox 98.4 F 69 16 157/85 97 12/22/17 17:00 12/22/17 17:00 12/22/17 17:00 12/22/17 17:00 12/22/17 17:00 Internal Medicine: Result - Labs CBC & Chem 7: 12/21/17 01:19 12/21/17 01:19 - Impressions Impressions Abdomen X-Ray 12/22/17 09:14 IMPRESSION: Nasogastric tube has been removed. Dilated small bowel loops in the left upper quadrant have decreased in caliber since the prior examination, suggesting improving small bowel obstruction. D/ / 12/22/2017 10:39:15 Thomas Xiong MD / Noemy Bonilla Interpreting Provider: Thomas Xiong MD - Attending Attestation I examined this patient and my medical decision-making was reviewed with the Resident Physician. I agree with the documented findings, disposition and treatment plan as described except to the extent set forth below.
[2017-12-22] MEDS ORDERED: Famotidine 20 MG TABLET PO PRN (09:20)
--- NOTE | 2017-12-22 09:20 | General Surgery Progress Note ---
<Joan Quesada - Last Filed: 12/22/17 09:16> Date of Encounter: 12/22/17 Time of Encounter: 09:17 - Assessment and Plan (1) Partial small bowel obstruction Current Visit: Yes Status: Acute Reports decreased appetite. Exam otherwise benign. Plan: AAS CLD pending x-ray continue colace and simethicone No acute indications for surgical intervention at this time. Subjective Patient reports: no new complaints, feels better, still having pain, pain is less, voiding w/o difficulty, flatus (x2), no bowel movement, afebrile Narrative: States feelings of decreased appetite. Objective Vital Signs - Last 8 Hours Temp Pulse Resp BP Pulse Ox 12/22/17 07:39 98.1 F 85 14 192/96 97 12/22/17 07:15 98.6 F 80 14 137/86 90 12/22/17 04:04 98.8 F 77 15 151/70 96 Intake and Output 12/21/17 12/22/17 12/22/17 23:59 07:59 15:59 Intake Total 0 / 0 1000 / 1000 Output Total 300 / 300 1650 / 1650 Balance -300 / -300 -650 / -650 Intake: IV Fluids 1000 / 1000 0.9 % Sodium Chloride 1,000 ML 1000 / 1000 @ 125 mls/hr IVC .Q8H [facility] Rx#: [id number] Oral 0 / 0 0 / 0 Output: Urine 300 / 300 1300 / 1300 Catheter 350 / 350 Other: Stool Size Smear Stool Consistency formed Stool Color Brown Weight 92.2 kg Patient Weight 12/22/17 23:59 Weight 92.2 kg - General physical appearance well developed, well nourished, no distress - Eyes normal ocular movement - ENT atraumatic, normocephalic - Neck Neck exam: trachea midline - Respiratory normal expansion, normal respiratory effort, clear to auscultation - Cardiovascular Cardiovascular exam: Present: RRR - Abdomen Abdomen: Present: bowel sounds present, soft, non tender Hernia: none - Integumentary no abnormal pigmentation - Neurologic normal coordination, normal sensation - Musculoskeletal normal gait, normal posture, other (sitting upright in chair at bedside) - Psychiatric oriented to time, oriented to person, oriented to place, speech is normal - Labs 12/21/17 01:19 12/21/17 01:19 Consult Discharge Plan - Plan Referrals: NONE,PCP [Primary Care Provider] - Mart Ramirez [Family Provider] - <Aly Lugo M - Last Filed: 12/22/17 12:56> Date of Encounter: 12/22/17 - Assessment and Plan (1) Partial small bowel obstruction Current Visit: Yes Status: Acute Objective Vital Signs - Last 8 Hours Temp Pulse Resp BP Pulse Ox 12/22/17 12:01 98.5 F 83 15 161/83 96 12/22/17 07:39 98.1 F 85 14 192/96 97 Intake and Output 12/21/17 12/22/17 12/22/17 23:59 07:59 15:59 Intake Total 0 / 0 1000 / 1000 Output Total 300 / 300 1300 / 1300 0 / 0 Balance -300 / -300 -300 / -300 0 / 0 Intake: IV Fluids 1000 / 1000 0.9 % Sodium Chloride 1,000 ML 1000 / 1000 @ 125 mls/hr IVC .Q8H [facility] Rx#: [id number] Oral 0 / 0 0 / 0 Output: Urine 300 / 300 1300 / 1300 0 / 0 Other: Stool Size Smear Stool Consistency formed Stool Color Brown Weight 92.2 kg Patient Weight 12/22/17 23:59 Weight 92.2 kg - Labs 12/21/17 01:19 12/21/17 01:19 - Attending Attestation I have personally performed a face to face evaluation on this patient. I have reviewed and agree with the care plan. History and Exam by me shows: I personally reviewed this assessment and evaluation and agree with the above plan. Abdominal x-ray personally reviewed by myself and noted decrease in the size of the small bowel dilation of the left upper quadrant. Patient's pain is decreased and he denies any nausea or vomiting. Positive flatus. I agree with clear liquid diet and will consider advancing to full liquids within the next 24 hours.
[2017-12-22] MEDS ORDERED: *HR* Metoprolol 5 MG/5 ML VIAL IVP PRN (09:21)
[2017-12-22] MEDS: Simethicone 80 MG TAB.CHEW PO SCH ×3 (09:34→21:48)
[2017-12-22] MEDS: Lisinopril 20 MG TABLET PO SCH (11:12)
[2017-12-22] MEDS: Acetaminophen 325 MG TABLET PO PRN ×2 (11:12→21:55)
[2017-12-22] MEDS: Pantoprazole 40 MG VIAL IVP SCH (19:47)
[2017-12-23] MEDS: Acetaminophen 325 MG TABLET PO PRN (04:00)
[2017-12-23 04:41] LABS: Hematocrit 33.6 % (37.5-50.1); Hemoglobin 11.2 g/dL (12.9-16.9); Mean Corpuscular HGB Conc 33.3 g/dL (31.6-35.5); Mean Corpuscular Hemoglobin 27.3 pg (28.0-33.3); Mean Corpuscular Volume 81.8 fL (83.0-100.0); Mean Platelet Volume 11.3 fL (9.4-12.4); Platelet Count 170 K/mcL (140-400); Red Blood Count 4.11 M/mcL (4.19-5.50); Red Cell Distribution Width 13.8 % (11.5-14.5)
[2017-12-23 05:04] LABS: BUN/Creatinine Ratio 6 (6-26); Blood Urea Nitrogen 5 mg/dL (6-20); Calcium 8.4 mg/dL (8.6-10.3); Carbon Dioxide 22 mEq/L (23-29); Chloride 112 mEq/L (98-107); Glucose 101 mg/dL (70-105); Osmolality,Calculated 285 (280-300); Potassium 3.5 mEq/L (3.5-5.1); Sodium 139 mEq/L (136-145); eGFR For African Americans > 60 (> 60); eGFR For Non-African Americans > 60 (> 60)
[2017-12-23] MEDS: *HR* Enoxaparin 40 MG/0.4 ML SYRINGE SQ SCH (05:51)
--- NOTE | 2017-12-23 07:32 | Internal Med Progress Note ---
<Jose Lowe - Last Filed: 12/23/17 14:17> Date of Encounter: 12/23/17 Time of Encounter: 07:30 - Assessment and plan (1) Partial small bowel obstruction Current Visit: Yes Status: Acute Assessment and plan: NG removed on 12/20, passing flatus and small BM yesterday Repeat acute abdominal series x-ray dilated small bowel loops in the left upper quadrant have decreased in caliber since the prior examination, suggesting improving small bowel obstruction. 12/23/17 small bowel follow through series was unremarkable. No acute indications for surgical intervention at this time per surgery Advance diet once cleared by surgery team to full liquids within the next 24 hours. Anticipate discharge once cleared by surgery team. (2) Chronic GERD Current Visit: Yes Status: Acute Assessment and plan: Discontinue Protonix Resume home Ranitidne (3) Hypertension Current Visit: Yes Status: Chronic Assessment and plan: Resume home ACEI Start Metoprolol PO BID IVF stopped Metoprolol IV q6h prn SBP > 170 Qualifiers: Hypertension type: essential hypertension Qualified Code(s): I10 - Essential (primary) hypertension (4) DVT prophylaxis Current Visit: Yes Status: Acute Assessment and plan: Lovenox (5) Obesity (BMI 30.0-34.9) Current Visit: Yes Status: Acute Assessment and plan: Lifestyle modification - Time Spent With Patient Total time spent is greater than 50% in coordination of care (as documented) at patient's floor/unit and/or counseling patient: - Subjective Interval history: Patient seen and examined resting comfortably in bedside chair. BP has improved this AM. Patient reports passing flatus and small BM last PM. Case discussed with surgery team. Will advance diet to full liquids today. - Constitutional Vitals: Temp Pulse Resp BP Pulse Ox 98.4 F 75 16 150/78 98 12/23/17 06:09 12/23/17 06:09 12/23/17 06:09 12/23/17 06:09 12/23/17 06:09 General appearance: Present: cooperative, A&O X 3, pleasant, obese, answers questions appropriately - Head Head exam: Present: atraumatic, normocephalic - Eye Eye exam: Present: PERRL, conjuntiva pink, sclera anicteric Pupils: Present: PERRL - ENT ENT exam: Present: mucous membranes moist, normal oropharynx - Neck Neck exam general surgery: Present: supple, trachea midline. Absent: lymphadenopathy - Respiratory Respiratory exam: Present: CTAB. Absent: accessory muscle use, rales, rhonchi, wheezes - Cardiovascular Cardiovascular exam: Present: RRR, +S1, +S2. Absent: diastolic murmur, gallop, rubs, systolic murmur - GI/Abdominal GI/Abdominal exam: Present: hypoactive bowel sounds, soft, no peritoneal signs. Absent: distended, guarding, normal bowel sounds, tenderness - Extremities Exam Extremities exam: Present: warm, radial pulses palpable and symmetrical. Absent : calf tenderness, cyanotic, pedal edema - Back Exam Back exam: Present: normal inspection. Absent: paraspinal tenderness, tenderness - Neurological Exam Neurological exam: Present: CN II-XII intact, oriented X3, no focal deficits. Absent: pronater drift, facial droop, speech deficit - Psychiatric Psychiatric exam: Present: normal affect, normal mood - Skin Skin exam: Present: dry, intact, warm Internal Medicine: Result - Labs CBC & Chem 7: 12/23/17 04:00 12/23/17 04:00 Labs: Short CBC 12/23/17 Range/Units 04:00 WBC 4.4 (4.3-11.1) K/mcL Hgb 11.2 L D (12.9-16.9) g/dL Hct 33.6 L (37.5-50.1) % Plt Count 170 (140-400) K/mcL BMP 12/23/17 04:00 Sodium 139 Potassium 3.5 Chloride 112 H Carbon Dioxide 22 L BUN 5 L Creatinine 0.87 Glucose 101 Calcium 8.4 L - Pulse Oximetry Interpretation Digit-Finger Pulse Oximetry Readin (On RA) - Impressions Impressions Abdomen X-Ray 12/22/17 09:14 IMPRESSION: Nasogastric tube has been removed. Dilated small bowel loops in the left upper quadrant have decreased in caliber since the prior examination, suggesting improving small bowel obstruction. D/ / 12/22/2017 10:39:15 Thomas Xiong MD / Noemy Bonilla Interpreting Provider: Thomas Xiong MD Consult Discharge Plan - Plan Referrals: NONE,PCP [Primary Care Provider] - Mart Ramirez [Family Provider] - <Guilherme Little - Last Filed: 12/23/17 16:31> Date of Encounter: 12/23/17 - Assessment and plan (1) Partial small bowel obstruction Current Visit: Yes Status: Acute (2) DVT prophylaxis Current Visit: Yes Status: Acute (3) Chronic GERD Current Visit: Yes Status: Acute (4) Hypertension Current Visit: Yes Status: Chronic Qualifiers: Hypertension type: essential hypertension Qualified Code(s): I10 - Essential (primary) hypertension (5) Obesity (BMI 30.0-34.9) Current Visit: Yes Status: Acute - Time Spent With Patient Total time spent is greater than 50% in coordination of care (as documented) at patient's floor/unit and/or counseling patient: - Constitutional Vitals: Temp Pulse Resp BP Pulse Ox 98.4 F 59 18 124/73 96 12/23/17 14:17 12/23/17 14:17 12/23/17 14:17 12/23/17 14:17 12/23/17 14:17 Internal Medicine: Result - Labs CBC & Chem 7: 12/23/17 04:00 12/23/17 04:00 Labs: Short CBC 12/23/17 Range/Units 04:00 WBC 4.4 (4.3-11.1) K/mcL Hgb 11.2 L D (12.9-16.9) g/dL Hct 33.6 L (37.5-50.1) % Plt Count 170 (140-400) K/mcL BMP 12/23/17 04:00 Sodium 139 Potassium 3.5 Chloride 112 H Carbon Dioxide 22 L BUN 5 L Creatinine 0.87 Glucose 101 Calcium 8.4 L - Impressions Impressions Small Bowel X-Ray 12/23/17 09:03 IMPRESSION: Unremarkable small bowel follow through series. D/ / Helder Crowell MD / Helder Crowell MD Interpreting Provider: Helder Crowell MD - Attending Attestation I performed an independent interview and exam of this patient. I agree with the findings, assessment, and plan of Dr. Lowe, internal medicine resident. We discussed the case together. Patient is improved clinically. He had a small bowel follow-through today which was a normal study. We are now advancing his diet as recommended by general surgery. Anticipate discharge in the morning if he continues to do well.
[2017-12-23] MEDS ORDERED: Methylnaltrexone 12 MG/0.6 ML SYRINGE SQ ONE (09:02)
--- NOTE | 2017-12-23 09:07 | General Surgery Progress Note ---
Addendum entered and electronically signed by Joan Quesada CNP 12/23/17 15: 10: Unremarkable small bowel follow-through. Anticipate sign off per attending attestation. Thank you for allowing us to participate in Mr. العلي's care. Please call or reconsult if further questions or needs arise. Original Note: <Joan Quesada - Last Filed: 12/23/17 09:04> Date of Encounter: 12/23/17 Time of Encounter: 09:04 - Assessment and Plan (1) Partial small bowel obstruction Current Visit: Yes Status: Acute Reports continued decreased appetite. hypoactive and faint bowel sounds. He is mildly distended. Reports flatus x1 and small liquid bm with the flatus. Would err on the side of caution and complete SBFT to r/o obstruction. (pt reports history of abdominal surgery when he was 6 years old). Plan: SBFT with gastrogaffin. If negative, patient may advance to FLD if tolerated. continue colace and simethicone No acute indications for surgical intervention at this time. Subjective Patient reports: feels better, still having pain, pain is less, voiding w/o difficulty, flatus (x1), bowel movement (x1 and only a small amount of liquid) Objective Vital Signs - Last 8 Hours Temp Pulse Resp BP Pulse Ox 12/23/17 06:09 98.4 F 75 16 150/78 98 12/23/17 03:39 98.8 F 79 16 169/87 98 Intake and Output 12/22/17 12/23/17 12/23/17 23:59 07:59 15:59 Intake Total 1480 / 1480 200 / 200 Output Total 1000 / 1000 900 / 900 Balance 480 / 480 -700 / -700 Intake: IV Fluids 1000 / 1000 0.9 % Sodium Chloride 1,000 ML 1000 / 1000 @ 75 mls/hr IVC .[id number] [facility] Rx #:[id number] Oral 480 / 480 200 / 200 Output: Urine 1000 / 1000 900 / 900 Other: Meal Dinner Percent of Meal Consumed 100% Stool Size Small Stool Consistency soft formed Stool Color Brown Weight 93.6 kg Patient Weight 12/23/17 23:59 Weight 93.6 kg - General physical appearance well developed, no distress, other (mld pain) - Eyes normal ocular movement - ENT atraumatic, normocephalic - Neck Neck exam: trachea midline, no venous distension - Respiratory normal expansion, normal respiratory effort, clear to auscultation - Cardiovascular Cardiovascular exam: Present: RRR - Abdomen Abdomen: Present: soft, non tender, distended. Absent: bowel sounds present ( Hypoactive and faint at best) Hernia: none - Integumentary no growths, no abnormal pigmentation - Neurologic normal coordination, normal sensation - Musculoskeletal normal gait, normal posture - Psychiatric oriented to time, oriented to person, oriented to place, speech is normal, memory intact - Labs 12/23/17 04:00 12/23/17 04:00 Diabetes panel 12/23/17 Range/Units 04:00 Sodium 139 (136-145) mEq/L Potassium 3.5 (3.5-5.1) mEq/L Chloride 112 H (98-107) mEq/L Carbon Dioxide 22 L (23-29) mEq/L BUN 5 L (6-20) mg/dL Creatinine 0.87 (0.70-1.30) mg/dL Glucose 101 (70-105) mg/dL Calcium 8.4 L (8.6-10.3) mg/dL Calcium panel 12/23/17 Range/Units 04:00 Calcium 8.4 L (8.6-10.3) mg/dL Pituitary panel 12/23/17 Range/Units 04:00 Sodium 139 (136-145) mEq/L Potassium 3.5 (3.5-5.1) mEq/L Chloride 112 H (98-107) mEq/L Carbon Dioxide 22 L (23-29) mEq/L BUN 5 L (6-20) mg/dL Creatinine 0.87 (0.70-1.30) mg/dL Glucose 101 (70-105) mg/dL Calcium 8.4 L (8.6-10.3) mg/dL Adrenal panel 12/23/17 Range/Units 04:00 Sodium 139 (136-145) mEq/L Potassium 3.5 (3.5-5.1) mEq/L Chloride 112 H (98-107) mEq/L Carbon Dioxide 22 L (23-29) mEq/L BUN 5 L (6-20) mg/dL Creatinine 0.87 (0.70-1.30) mg/dL Glucose 101 (70-105) mg/dL Calcium 8.4 L (8.6-10.3) mg/dL Consult Discharge Plan - Plan Referrals: NONE,PCP [Primary Care Provider] - Mart Ramirez [Family Provider] - <ParishAly M - Last Filed: 12/23/17 15:51> Date of Encounter: 12/23/17 - Assessment and Plan (1) Partial small bowel obstruction Current Visit: Yes Status: Acute Objective Vital Signs - Last 8 Hours Temp Pulse Resp BP Pulse Ox 12/23/17 14:17 98.4 F 59 18 124/73 96 12/23/17 08:45 98 Intake and Output 12/22/17 12/23/17 12/23/17 23:59 07:59 15:59 Intake Total 1480 / 1480 200 / 200 1330 / 1330 Output Total 1000 / 1000 900 / 900 600 / 600 Balance 480 / 480 -700 / -700 730 / 730 Intake: IV Fluids 1000 / 1000 0.9 % Sodium Chloride 1,000 ML 1000 / 1000 @ 75 mls/hr IVC .[id number] [facility] Rx #:[id number] Oral 480 / 480 200 / 200 1330 / 1330 Output: Urine 1000 / 1000 900 / 900 600 / 600 Other: Meal Dinner Lunch Percent of Meal Consumed 100% Stool Size Small Stool Consistency soft formed Stool Color Brown # Voids 1 Weight 93.6 kg Patient Weight 12/23/17 23:59 Weight 93.6 kg - Labs 12/23/17 04:00 12/23/17 04:00 Diabetes panel 12/23/17 Range/Units 04:00 Sodium 139 (136-145) mEq/L Potassium 3.5 (3.5-5.1) mEq/L Chloride 112 H (98-107) mEq/L Carbon Dioxide 22 L (23-29) mEq/L BUN 5 L (6-20) mg/dL Creatinine 0.87 (0.70-1.30) mg/dL Glucose 101 (70-105) mg/dL Calcium 8.4 L (8.6-10.3) mg/dL Calcium panel 12/23/17 Range/Units 04:00 Calcium 8.4 L (8.6-10.3) mg/dL Pituitary panel 12/23/17 Range/Units 04:00 Sodium 139 (136-145) mEq/L Potassium 3.5 (3.5-5.1) mEq/L Chloride 112 H (98-107) mEq/L Carbon Dioxide 22 L (23-29) mEq/L BUN 5 L (6-20) mg/dL Creatinine 0.87 (0.70-1.30) mg/dL Glucose 101 (70-105) mg/dL Calcium 8.4 L (8.6-10.3) mg/dL Adrenal panel 12/23/17 Range/Units 04:00 Sodium 139 (136-145) mEq/L Potassium 3.5 (3.5-5.1) mEq/L Chloride 112 H (98-107) mEq/L Carbon Dioxide 22 L (23-29) mEq/L BUN 5 L (6-20) mg/dL Creatinine 0.87 (0.70-1.30) mg/dL Glucose 101 (70-105) mg/dL Calcium 8.4 L (8.6-10.3) mg/dL - Attending Attestation I have personally performed a face to face evaluation on this patient. I have reviewed and agree with the care plan. History and Exam by me shows: I reviewed the above assessment and evaluation agree with the above plan. Small bowel follow-through shows passage of contrast into the colon without any dilation present. Patient denies any abdominal pain or nausea or vomiting. He has been having positive bowel movements since the contrast study. Will advance to full liquids. From my standpoint I think you will be able to advance to soft diet by morning time. If he tolerates that and I think he would be okay to be discharged home. We will follow from a distance and he will NOT need to follow-up with us after he is discharged home. Think you very much.
[2017-12-23] MEDS: Simethicone 80 MG TAB.CHEW PO SCH ×3 (09:17→21:14)
[2017-12-23] MEDS: Lisinopril 20 MG TABLET PO SCH (09:17)
[2017-12-24 03:35] LABS: Hematocrit 36.6 % (37.5-50.1); Hemoglobin 12.2 g/dL (12.9-16.9); Mean Corpuscular HGB Conc 33.3 g/dL (31.6-35.5); Mean Corpuscular Hemoglobin 27.5 pg (28.0-33.3); Mean Corpuscular Volume 82.4 fL (83.0-100.0); Platelet Count 206 K/mcL (140-400); Red Blood Count 4.44 M/mcL (4.19-5.50); Red Cell Distribution Width 13.9 % (11.5-14.5)
[2017-12-24] MEDS: *HR* Enoxaparin 40 MG/0.4 ML SYRINGE SQ SCH (05:29)
--- NOTE | 2017-12-24 08:07 | Discharge Summary ---
Date of Encounter: 12/24/17 Time of Encounter: 08:04 - Discharge Diagnosis (1) Partial small bowel obstruction Priority: Primary Status: Acute Assessment and Plan: NG removed on 12/20, passing flatus and small BM yesterday Repeat acute abdominal series x-ray dilated small bowel loops in the left upper quadrant have decreased in caliber since the prior examination, suggesting improving small bowel obstruction. 12/23/17 small bowel follow through series was unremarkable. No acute indications for surgical intervention at this time per surgery, surgery following from a distance and he will NOT need to follow-up with us after he is discharged home. Tolerating regualr diet. Anticipate discharge today. (2) Chronic GERD Priority: Secondary Status: Acute Assessment and Plan: Discontinue Protonix Resume home Ranitidne (3) Hypertension Priority: Secondary Status: Chronic Assessment and Plan: Resume home ACEI Started Metoprolol PO BID IVF stopped Metoprolol IV q6h prn SBP > 170 Qualifiers: Hypertension type: essential hypertension Qualified Code(s): I10 - Essential (primary) hypertension (4) Obesity (BMI 30.0-34.9) Priority: Secondary Status: Acute Assessment and Plan: Lifestyle modification (5) DVT prophylaxis Priority: Secondary Status: Acute Assessment and Plan: Ambulation Hospital course: Mr. العلي is a 52 year old male Discharge discussed with: patient - Time Spent with Patient Total time spent providing and/or coordinating discharge services: - Discharge Medications Home Medications: Lisinopril [Zestril] 20 mg PO DAILY 12/18/17 [History] Mag Carb/Al Hydrox/Alginic AC [Gaviscon Liquid] 30 ml PO ONCE PRN 12/18/17 [ History] Ranitidine HCl [Acid Conduit Bender] 75 mg PO DAILY PRN 12/18/17 [History] Allergies/Adverse Reactions: 3 Allergy/AdvReac Type Severity Reaction Status Date / Time No Known Allergies Allergy Verified 12/18/17 16:57 Date of admission: 12/18/17 18:09 Primary care physician: PCP NONE Consults: General Surgery Discharging clinician: Jose Lowe Anticipated date of discharge: 12/24/17 - Constitutional Vitals: Temp Pulse Resp BP Pulse Ox 98.6 F 64 16 136/68 96 12/24/17 06:34 12/24/17 06:34 12/24/17 06:34 12/24/17 06:34 12/24/17 06:34 General appearance: Present: cooperative, A&O X 3, pleasant, obese, answers questions appropriately - Head Head exam: Present: atraumatic, normocephalic - Eye Eye exam: Present: PERRL, conjuntiva pink, sclera anicteric Pupils: Present: PERRL - ENT ENT exam: Present: mucous membranes moist, normal oropharynx - Neck Neck exam general surgery: Present: supple, trachea midline. Absent: lymphadenopathy - Respiratory Respiratory exam: Present: CTAB. Absent: accessory muscle use, rales, rhonchi, wheezes - Cardiovascular Cardiovascular exam: Present: RRR, +S1, +S2. Absent: diastolic murmur, gallop, rubs, systolic murmur - GI/Abdominal GI/Abdominal exam: Present: normal bowel sounds, soft, no peritoneal signs. Absent: distended, tenderness - Extremities Exam Extremities exam: Present: normal inspection, warm, radial pulses palpable and symmetrical. Absent: calf tenderness, cyanotic, pedal edema - Back Exam Back exam: Present: normal inspection. Absent: paraspinal tenderness, tenderness - Neurological Exam Neurological exam: Present: CN II-XII intact, oriented X3, no focal deficits. Absent: pronater drift, facial droop, speech deficit - Psychiatric Psychiatric exam: Present: normal affect, normal mood - Skin Skin exam: Present: dry, intact, warm - Patient Status Disposition: Home, Self-Care Condition: Good Functional capacity at discharge: independent ambulation Overall status at discharge: patient is back to baseline - Discharge Instructions Follow Up With: NONE,PCP [Primary Care Provider] - - Diet and Activity Activity: increase activity as tolerated, return to work once cleared by your PCP/specialist, resume usual activities as tolerated Diet: regular diet
[2017-12-24] MEDS: Simethicone 80 MG TAB.CHEW PO SCH (09:54)
[2017-12-24] MEDS: Lisinopril 20 MG TABLET PO SCH (09:54)
[2017-12-24 10:57] VITALS: BP 144/75
== END 2017-12-24 17:39 | disposition home or self-care (01) | DRG 390 ==
LOC: 3ANU 12:25 → EMEROO 12:25 → SUATTDRO 18:09 → 3ANU 18:33 → UNDODISIN 12-21 14:09
PROVIDERS: ADMIT Internal Medicine; ATTEND Hospitalist